=== PATIENT | female | born 1995 | race Caucasian/White ===

== ENCOUNTER 2022-02-15 17:01 | Observation (INO) ==
[2022-02-15 17:52] LABS: Urine Appearance Clear; Urine Bilirubin Negative (Negative); Urine Blood Negative (Negative); Urine Color Yellow; Urine Glucose Negative (Negative); Urine Ketones Trace (Negative); Urine Nitrite Negative (Negative); Urine Protein Negative (Negative); Urine Specific Gravity 1.015 (1.002-1.030); Urine Urobilinogen Negative (Negative)
[2022-02-15 18:03] LABS: Urine Bacteria Absent (Absent); Urine Red Blood Cell Trace(0-2/hpf) (Absent); Urine Squamous Epithelial Cell Present (Absent); Urine White Blood Cell Trace(0-5/hpf) (Absent)
[2022-02-15 19:57] LABS: ABS Lymphocytes 0.9 10^3/ul (1.0-4.8); ABS Monocytes 0.5 10^3/ul (0-0.8); ABS Neutrophils 6.9 10^3/ul (1.5-7.7); Eosinophil % 0.2 %; Hematocrit 41 % (35-47); Hemoglobin 13.4 g/dL (12.0-16.0); Lymphocyte % 10.4 %; Mean Corpuscular HGB Conc 33 g/dL (31-36); Mean Corpuscular Hemoglobin 29 pg (27-31); Mean Corpuscular Volume 87 fL (80-97); Mean Platelet Volume 7.5 fL (7.4-10.4); Platelet Count 292 10^3/uL (150-450); Red Blood Count 4.68 10^6 /uL (3.70-4.87); Red Cell Distribution Width 13 % (10-15); White Blood Count 8.3 10^3/uL (3.5-10.8)
[2022-02-15] MEDS ORDERED: Lactated Ringers 1000 ml BAG 1,000 ML IV ONE ×2 (20:28→22:05)
[2022-02-15] MEDS ORDERED: Ondansetron 4 mg VIAL 2 MG/ML 2 ml VIAL IV ONE (20:28)
[2022-02-15 20:36] LABS: ALT 16 U/L (7-52); AST 16 U/L (13-39); Albumin 4.6 g/dL (3.2-5.2); Albumin/Globulin Ratio 1.7 (1-3); Alkaline Phosphatase 67 U/L (35-149); Anion Gap 6 mmol/L (2-11); Blood Urea Nitrogen 7 mg/dL (6-24); C Reactive Protein 17.35 mg/L (<8.01); CO2 Carbon Dioxide 25 mmol/L (22-32); Calcium 9.9 mg/dL (8.6-10.3); Chloride 103 mmol/L (101-111); Globulin 2.7 g/dL (2-4); Glucose 110 mg/dL (70-100); Lipase < 10 U/L (11.0-82.0); Potassium 4.5 mmol/L (3.5-5.0); Sodium 134 mmol/L (135-145); Total Protein 7.3 g/dL (6.4-8.9); eGFR CKD-EPI 108.7 (>60)
[2022-02-15] MEDS ORDERED: Iohexol 350 (CONTRAST) 500 ML MDV IV ONE (20:39)
[2022-02-15 20:42] LABS: HCG Pregnancy < 0.60 mIU/mL
[2022-02-15] MEDS ORDERED: metroNIDAZOLE IV 500 MG/100ML 500 MG/100 ML BAG IVPB ONE (22:04)
[2022-02-15] MEDS ORDERED: HYDROmorphone 1 MG/1 ML SYRINGE IV SLOW PU PRN (22:13)
[2022-02-15] MEDS: Lactated Ringers 1000 ml BAG 1,000 ML IV SCH ×2 (23:34→23:58)
[2022-02-16] MEDS ORDERED: Ondansetron 4 mg VIAL 2 MG/ML 2 ml VIAL IV PRN (01:54)
[2022-02-16] MEDS: Ondansetron 4 mg VIAL 2 MG/ML 2 ml VIAL ONE ×2 (01:54→02:03)
[2022-02-16] MEDS ORDERED: metroNIDAZOLE IV 500 MG/100ML 500 MG/100 ML BAG IVPB SCH (06:00)
[2022-02-16] MEDS ORDERED: Acetaminophen IV 1 GM/100ML 1,000 MG/100 ML BAG IV ONE (09:42)
[2022-02-16] MEDS ORDERED: Lidocaine 2% PF 5 ML VIAL ONE (09:49)
[2022-02-16] MEDS ORDERED: Ondansetron 4 mg VIAL 2 MG/ML 2 ml VIAL ONE (09:49)
[2022-02-16] MEDS ORDERED: Sevoflurane BOTTLE ONE (09:49)
[2022-02-16] MEDS ORDERED: Dexamethasone IV 4 MG/ML VIAL 1 ml VIAL ONE (09:49)
[2022-02-16] MEDS ORDERED: Propofol 10 MG/ML 20 ML BTL ONE (09:49)
[2022-02-16] MEDS ORDERED: Midazolam 2 mg/2 ml VIAL 1 mg/ml 2 ml VIAL (2 mg) ONE (09:50)
[2022-02-16] MEDS ORDERED: fentaNYL 100 mcg/2 ml 50 MCG/ML VIAL ONE ×2 (09:50→13:30)
[2022-02-16] MEDS ORDERED: Rocuronium 50 mg VIAL 10 mg/ml 5 ml VIAL (50 mg) ONE (09:50)
[2022-02-16] MEDS ORDERED: Bupivacaine 0.25% SDV 30 ML ONE (11:42)
[2022-02-16] MEDS ORDERED: HYDROmorphone 0.5 MG/0.5 ML SYRINGE ONE ×2 (12:17→12:35)
[2022-02-16] MEDS ORDERED: Prochlorperazine 5 mg/ml 2 ml VIAL (10 mg) IV PRN (13:07)
[2022-02-16] MEDS ORDERED: fentaNYL 100 mcg/2 ml 50 MCG/ML VIAL IV PRN (13:07)
[2022-02-16] MEDS ORDERED: Naloxone 0.4 mg VIAL 0.4 mg/ml 1 ml VIAL IV PRN (13:07)
[2022-02-16 14:08] VITALS: BP 127/87
== END 2022-02-16 15:23 | disposition home or self-care (01) ==
LOC: ED 17:01 → SSU 17:01 → OR 22:28 → SSU 23:59 → INTOOBSV 02-16 00:57 → UNDODISOB 02-16 15:23
PROVIDERS: ADMIT Surgery; ATTEND Surgery